=== PATIENT | male | born 1965 | race Two or more races ===

== ENCOUNTER 2021-01-21 16:20 | Inpatient (IN) | payer OTHER ==
[2021-01-21 18:29] VITALS: BMI 35.7
[2021-01-21] MEDS ORDERED: IBUPROFEN 400 MG TABLET (FP) PO PRN (18:57)
[2021-01-21] MEDS ORDERED: NICOTINE 10 MG CARTRIDGE (INHALER) IH PRN (18:57)
[2021-01-21] MEDS ORDERED: MAGNESIUM HYDROX 2400MG/30ML ORAL SUSPENSION 30 ML CUP PO PRN (18:57)
[2021-01-21] MEDS ORDERED: ACETAMINOPHEN 325 MG TABLET (FP) PO PRN ×2 (18:57)
[2021-01-21] MEDS ORDERED: MAG HYDROX/AL HYDROX/SIMETH 30 ML UNIT-DOSE CUP PO PRN (18:57)
[2021-01-21] MEDS ORDERED: MENTHOL/PHENOL 1 EACH UD MM PRN (18:57)
[2021-01-21] MEDS ORDERED: ONDANSETRON *ODT* 4 MG TABLET SL PRN (18:57)
[2021-01-21] MEDS ORDERED: BISMUTH SUBSALICYLATE 524 MG/30 ML PO PRN (18:57)
[2021-01-21] MEDS ORDERED: MAGNESIUM CITRATE 300 ML BOTTLE PO PRN (18:57)
[2021-01-21] MEDS ORDERED: FLU VACC QS2021-22(6MOS UP)/PF 60 MCG/0.5 ML SYRINGE IM ONE (20:59)
[2021-01-21] MEDS: MELATONIN 5 MG TABLETS PO SCH (22:06)
[2021-01-21] MEDS: hydrOXYzine PAMOATE 25 MG CAPSULE (FP) PO SCH (22:07)
[2021-01-21] MEDS: THIAMINE HCL 100 MG TABLET (FP) PO SCH (22:07)
[2021-01-22] MEDS: ALBUTEROL SO4 HFA INHALER IH PRN ×2 (00:38→12:33)
[2021-01-22] MEDS: hydrOXYzine PAMOATE 25 MG CAPSULE (FP) PO SCH (05:08)
[2021-01-22] MEDS ORDERED: methaDONE HCL 10 MG TABLET (FOR DETOX USE ONLY) PO ONE (05:27)
[2021-01-22] MEDS ORDERED: cloNIDine HCL 0.1 MG TABLET PO PRN (05:27)
[2021-01-22] MEDS ORDERED: diazePAM 5 MG TABLET PO PRN (05:29)
[2021-01-22] MEDS ORDERED: hydrOXYzine PAMOATE 25 MG CAPSULE (FP) PO PRN (06:36)
[2021-01-22] MEDS: PRENATAL VITAMINS W/ FOLIC ACID TABLET (FP) PO SCH (10:18)
[2021-01-22] MEDS: NICOTINE 14 MG/24 HOURS TOPICAL PATCH TD SCH (10:18)
[2021-01-22 10:57] LABS: HEMOGLOBIN 12.4 GM/dL (11.7-16.9); MCH 24.6 pg (25.7-33.7); MCHC 32.5 g/dl (32.0-35.9); MEAN CELL VOLUME 75.7 fl (80-96); MEAN PLT VOLUME 8.9 fl (7.5-11.1); PLATELET COUNT 227 10^3/uL (134-434); RBC 5.02 M/mm3 (4.00-5.60); RDW 18.3 % (11.9-15.9); WHITE BLOOD COUNT 9.6 K/mm3 (4.0-10.0)
[2021-01-22 11:03] LABS: BLOOD UREA NITROGEN 19.4 mg/dL (7-18); CALCIUM 9.1 mg/dL (8.5-10.1)
[2021-01-22 11:07] LABS: BILIRUBIN,TOTAL 0.2 mg/dL (0.2-1); TOT PROT 6.6 g/dl (6.4-8.2)
[2021-01-22 12:11] LABS: HIV INTERPRETATION NEGATIVE (NEGATIVE)
[2021-01-22] MEDS ORDERED: ALPRAZolam 1 MG TABLET PO SCH (13:00)
[2021-01-22] MEDS ORDERED: clonazePAM 0.5 MG ODT TABLETS SL PRN (14:14)
[2021-01-22] MEDS ORDERED: traZODone HCL 100 MG TABLET (FP) PO SCH (22:00)
[2021-01-22] MEDS: THIAMINE HCL 100 MG TABLET (FP) PO SCH (23:15)
[2021-01-22] MEDS: MELATONIN 5 MG TABLETS PO SCH (23:15)
[2021-01-23] MEDS: METHOCARBAMOL 500 MG TABLET PO PRN ×2 (02:50→10:44)
[2021-01-23] MEDS ORDERED: ARIPiprazole 5 MG TABLET PO SCH (10:00)
[2021-01-23] MEDS ORDERED: HYDROCHLOROTHIAZIDE 25 MG TABLET (FP) PO SCH (10:00)
[2021-01-23] MEDS: NICOTINE 14 MG/24 HOURS TOPICAL PATCH TD SCH (10:41)
[2021-01-23] MEDS: PRENATAL VITAMINS W/ FOLIC ACID TABLET (FP) PO SCH (10:41)
[2021-01-23] MEDS ORDERED: LORazepam 0.5 MG TABLET PO PRN (11:28)
[2021-01-23 12:49] VITALS: PULSE 58
[2021-01-23] MEDS ORDERED: BUPRENORPHINE/NALOXONE 2 MG/0.5 MG FILM PACKET SL ONE ×7 (13:45→23:00)
[2021-01-23 17:01] VITALS: BP 143/86; TEMP 98
[2021-01-24] MEDS ORDERED: BUPRENORPHINE/NALOXONE 8 MG/2 MG FILM PACKET SL ONE (10:00)
[2021-01-24] MEDS ORDERED: BUPRENORPHINE/NALOXONE 2 MG/0.5 MG FILM PACKET SL SCH ×2 (10:00→14:00)
[2021-01-24] MEDS ORDERED: methaDONE HCL 10 MG TABLET (FOR DETOX USE ONLY) PO ONE (10:00)
[2021-01-25] MEDS ORDERED: BUPRENORPHINE/NALOXONE 8 MG/2 MG FILM PACKET SL SCH (10:00)
[2021-01-25] MEDS ORDERED: BUPRENORPHINE/NALOXONE 2 MG/0.5 MG FILM PACKET SL ONE (10:00)
[2021-01-26] MEDS ORDERED: BUPRENORPHINE/NALOXONE 4 MG/1 MG FILM PACKET SL ONE (10:00)
[2021-01-26] MEDS ORDERED: methaDONE HCL 10 MG TABLET (FOR DETOX USE ONLY) PO ONE (10:00)
[2021-01-27] MEDS ORDERED: BUPRENORPHINE/NALOXONE 2 MG/0.5 MG FILM PACKET SL SCH (06:00)
== END 2021-01-23 17:30 | disposition left against medical advice (07) | DRG 770 ==
LOC: YASAS 16:20 → UNDOADMIN 19:08 → Y6N 19:08
PROVIDERS: ADMIT Allergy & Immunology; ATTEND Allergy & Immunology
PROC: HZ2ZZZZ Detoxification Services for Substance Abuse Treatment (ICD-10-PCS; principal; 2021-01-21)
DX: F11.23 Opioid dependence with withdrawal (principal); F14.20 Cocaine dependence, uncomplicated; F13.20 Sedative, hypnotic or anxiolytic dependence, uncomplicated; F31.9 Bipolar disorder, unspecified; F41.8 Other specified anxiety disorders; I10 Essential (primary) hypertension; E78.5 Hyperlipidemia, unspecified; J45.909 Unspecified asthma, uncomplicated; G47.33 Obstructive sleep apnea (adult) (pediatric); M17.12 Unilateral primary osteoarthritis, left knee; R73.03 Prediabetes; Z99.89 Dependence on other enabling machines and devices
CPT/HCPCS: 36415; 80053; 85027; 86780; 87389; 93005; 93010; C9803; U0003; U0005

== ENCOUNTER 2021-01-22 13:23 | Emergency (ER) | payer OTHER ==
[2021-01-22 13:58] VITALS: TEMP 99.3; BMI 32.5
[2021-01-22] MEDS ORDERED: LORazepam 2 MG TABLET PO ONE (14:10)
[2021-01-22] MEDS ORDERED: LORazepam 1 MG TABLET ONE (14:22)
[2021-01-22 17:43] VITALS: BP 134/76; PULSE 62
== END 2021-01-22 19:26 | disposition home or self-care (01) ==
LOC: JER 13:23
DX: T40.2X1A Poisoning by other opioids, accidental (unintentional), initial encounter (principal); F11.20 Opioid dependence, uncomplicated
CPT/HCPCS: 82962; 99283-25